=== PATIENT | female | born 1940 | race Caucasian/White ===

== ENCOUNTER 2016-10-28 22:17 | Inpatient (IN) | payer MEDICARE, OTHER ==
[2016-10-28] MEDS ORDERED: ZYLOPRIM100 M1 PO (22:33)
[2016-10-28] MEDS ORDERED: COREG25 M1 PO (22:34)
[2016-10-28] MEDS ORDERED: NEURONTIN100 M1 PO (22:35)
[2016-10-28] MEDS ORDERED: FELODIPINE ER5 M2 PO (22:35)
[2016-10-28] MEDS ORDERED: SYNTHROID175 MC1 PO (22:36)
[2016-10-28] MEDS ORDERED: CYTOMEL5 MC1 PO (22:36)
[2016-10-28] MEDS ORDERED: PRINIVIL5 M1 PO ×2 (22:37→22:38)
[2016-10-28] MEDS ORDERED: DULOXETINE HCL60 M1 PO (22:40)
[2016-10-28] MEDS ORDERED: MIRAPEX0.25 M1 PO (22:40)
[2016-10-28] MEDS ORDERED: NYSTATIN15 G2 TOP (22:41)
[2016-10-28] MEDS ORDERED: DELTASONE20 MG PO (22:42)
[2016-10-28] MEDS ORDERED: POTASSIUM CHLO20 ME3 PO (22:42)
[2016-10-28] MEDS ORDERED: MIRALAX17 G2 PO (22:42)
[2016-10-28] MEDS ORDERED: ALDACTONE50 M1 PO (22:43)
[2016-10-28] MEDS ORDERED: ZOCOR80 M1 PO (22:43)
[2016-10-28] MEDS ORDERED: EFFEXOR XR75 M1 PO (22:44)
[2016-10-28] MEDS ORDERED: TOPAMAX200 M1 PO (22:44)
[2016-10-28] MEDS ORDERED: WARFARIN SODIUM5 M2 PO (22:44)
[2016-10-28] MEDS ORDERED: LANTUS100 UNITS/ SC (22:45)
[2016-10-28] MEDS ORDERED: NOVOLOG100 UNITS/ SC ×2 (22:47→22:49)
[2016-10-29 02:18] LABS: INR 3.1 INR (0.9-1.1); PROTHROMBIN TIME 36.8 SECONDS (9.0-13.6)
[2016-10-29 06:36] LABS: BASO % 0.9 % (0-2); BASO ABSOLUTE COUNT 0.1 tho/cmm (0.0-0.2); EOS % 2.2 % (0-7); EOSINOPHIL ABSOLUTE COUNT 0.2 tho/cmm (0.0-0.7); HCT-HEMATOCRIT 42.6 % (34.0-49.0); HGB-HEMOGLOBIN 14.4 gm/dl (12.0-15.5); IMMATURE GRANULOCYTES ABSOLUTE 0.03 tho/cmm (0-0.03); IMMATURE GRANULOCYTES PERCENT 0.3 % (0-0.3); LYMPH % 19.8 % (20-45); LYMPH ABSOLUTE COUNT 2.1 tho/cmm (0.8-4.5); MCH (MEAN CORPUSCULAR HGB) 30.1 pg (28.0-32.0); MCHC MEAN CORPUSCULAR HGB CONC 33.8 % (32.0-36.0); MCV (MEAN CELL VOLUME) 88.9 fl (82.0-96.0); MONO % 9.9 % (0-12); MONOCYTE ABSOLUTE COUNT 1.1 tho/cmm (0.0-1.2); NEUTROPHIL ABSOLUTE COUNT 7.1 tho/cmm (1.6-8.0); NEUTROPHIL-AUTOMATED 7.1 tho/cmm (1.6-8.0); NEUTROPHILS % 66.9 % (40-80); PLATELET COUNT 181 tho/cmm (150-450); RED BLOOD COUNT 4.79 mil/cmm (4.00-5.20); RED CELL DISTRIBUTION WIDTH 14.8 % (12.4-16.4); WHITE BLOOD COUNT 10.6 tho/cmm (4.0-10.0)
[2016-10-29 06:43] LABS: INR 2.9 INR (0.9-1.1); PROTHROMBIN TIME 34.3 SECONDS (9.0-13.6)
[2016-10-29 06:54] LABS: ANION GAP 12 mmol/L (0-20); BLOOD UREA NITROGEN 59 mg/dl (6-24); CALCIUM 9.3 mg/dl (8.5-10.5); CARBON DIOXIDE-VENOUS 25 mmol/L (22-32); CHLORIDE 102 mmol/l (96-110); CHOLESTEROL 153 mg/dl (120-200); CREATININE 2.15 mg/dl (0.50-1.10); GLUCOSE 254 mg/dL (70-110); HDL CHOLESTEROL 47 mg/dl (40-60); LDL CHOLESTEROL 79 mg/dl (0-99); POTASSIUM 3.9 mmol/L (3.7-5.1); SODIUM 135 mmol/L (135-145); TRIGLYCERIDES 139 mg/dl (<149); VLDL 28 mg/dl (0-30); eGFR VALUE FOR BLACK 25 mL/Min
[2016-10-29 11:50] LABS: TSH-THYROID STIMULATING HORM. 6.44 uIU/ml (0.40-3.80)
[2016-10-30 05:24] LABS: INR 2.2 INR (0.9-1.1)
[2016-10-30 05:32] LABS: PROTHROMBIN TIME 25.6 SECONDS (9.0-13.6)
[2016-10-31 06:50] LABS: INR 3.4 INR (0.9-1.1); PROTHROMBIN TIME 40.7 SECONDS (9.0-13.6)
[2016-11-01 07:39] LABS: INR 4.6 INR (0.9-1.1); PROTHROMBIN TIME 55.8 SECONDS (9.0-13.6)
[2016-11-02 04:46] LABS: INR 4.2 INR (0.9-1.1); PROTHROMBIN TIME 50.8 SECONDS (9.0-13.6)
[2016-11-03 07:25] LABS: BASO % 0.5 % (0-2); BASO ABSOLUTE COUNT 0.1 tho/cmm (0.0-0.2); EOS % 2.3 % (0-7); EOSINOPHIL ABSOLUTE COUNT 0.3 tho/cmm (0.0-0.7); HCT-HEMATOCRIT 42.2 % (34.0-49.0); IMMATURE GRANULOCYTES ABSOLUTE 0.04 tho/cmm (0-0.03); IMMATURE GRANULOCYTES PERCENT 0.4 % (0-0.3); LYMPH % 18.7 % (20-45); LYMPH ABSOLUTE COUNT 2.1 tho/cmm (0.8-4.5); MCH (MEAN CORPUSCULAR HGB) 29.6 pg (28.0-32.0); MCHC MEAN CORPUSCULAR HGB CONC 33.2 % (32.0-36.0); MCV (MEAN CELL VOLUME) 89.2 fl (82.0-96.0); MEAN PLATELET VOLUME 12.1 cmc (9.4-12.4); MONO % 8.1 % (0-12); MONOCYTE ABSOLUTE COUNT 0.9 tho/cmm (0.0-1.2); NEUTROPHIL ABSOLUTE COUNT 7.7 tho/cmm (1.6-8.0); NEUTROPHIL-AUTOMATED 7.7 tho/cmm (1.6-8.0); PLATELET COUNT 156 tho/cmm (150-450); RED BLOOD COUNT 4.73 mil/cmm (4.00-5.20); RED CELL DISTRIBUTION WIDTH 14.7 % (12.4-16.4); WHITE BLOOD COUNT 11.1 tho/cmm (4.0-10.0)
[2016-11-03 07:41] LABS: ANION GAP 15 mmol/L (0-20); BLOOD UREA NITROGEN 67 mg/dl (6-24); CALCIUM 8.9 mg/dl (8.5-10.5); CARBON DIOXIDE-VENOUS 20 mmol/L (22-32); CHLORIDE 107 mmol/l (96-110); CREATININE 2.35 mg/dl (0.50-1.10); GLUCOSE 104 mg/dL (70-110); POTASSIUM 4.3 mmol/L (3.7-5.1); SODIUM 138 mmol/L (135-145); eGFR VALUE FOR BLACK 23 mL/Min
[2016-11-03 08:09] LABS: INR 2.4 INR (0.9-1.1); PROTHROMBIN TIME 28.5 SECONDS (9.0-13.6)
[2016-11-04 06:20] LABS: INR 1.7 INR (0.9-1.1); PROTHROMBIN TIME 20.5 SECONDS (9.0-13.6)
[2016-11-05 05:36] LABS: PROTHROMBIN TIME 24.3 SECONDS (9.0-13.6)
[2016-11-06 05:40] LABS: INR 2.6 INR (0.9-1.1)
[2016-11-06 05:42] LABS: PROTHROMBIN TIME 31.2 SECONDS (9.0-13.6)
[2016-11-06 06:09] LABS: ANION GAP 16 mmol/L (0-20); BLOOD UREA NITROGEN 71 mg/dl (6-24); CALCIUM 9.2 mg/dl (8.5-10.5); CARBON DIOXIDE-VENOUS 20 mmol/L (22-32); CHLORIDE 106 mmol/l (96-110); CREATININE 2.48 mg/dl (0.50-1.10); GLUCOSE 161 mg/dL (70-110); POTASSIUM 4.5 mmol/L (3.7-5.1); SODIUM 137 mmol/L (135-145); eGFR VALUE FOR BLACK 21 mL/Min
[2016-11-07 05:23] LABS: INR 2.6 INR (0.9-1.1); PROTHROMBIN TIME 30.5 SECONDS (9.0-13.6)
[2016-11-07] MEDS ORDERED: ASPIRIN EC81 MG PO (09:56)
[2016-11-08 04:42] LABS: INR 2.8 INR (0.9-1.1); PROTHROMBIN TIME 33.5 SECONDS (9.0-13.6)
== END 2016-11-08 09:15 | DRG 65 ==
LOC: 5EB 22:17
PROVIDERS: Hospitalist; Physician Assistant; Psychiatry & Neurology Neurology; Registered Nurse; ADMIT Hospitalist
PROC: 05HC33Z Insertion of Infusion Device into Left Basilic Vein, Percutaneous Approach (ICD-10-PCS; principal; 2016-10-29)
DX: I63.9 Cerebral infarction, unspecified (principal); G81.94 Hemiplegia, unspecified affecting left nondominant side; E11.22 Type 2 diabetes mellitus with diabetic chronic kidney disease; G20 Parkinson's disease; E11.65 Type 2 diabetes mellitus with hyperglycemia; I48.0 Paroxysmal atrial fibrillation; E11.40 Type 2 diabetes mellitus with diabetic neuropathy, unspecified; E11.51 Type 2 diabetes mellitus with diabetic peripheral angiopathy without gangrene; G25.81 Restless legs syndrome; F02.80 Dementia in other diseases classified elsewhere, unspecified severity, without behavioral disturbance, psychotic disturbance, mood disturbance, and anxiety; N18.3 Chronic kidney disease, stage 3 (moderate); Z79.4 Long term (current) use of insulin; E66.01 Morbid (severe) obesity due to excess calories; Z68.33 Body mass index [BMI] 33.0-33.9, adult; Z79.01 Long term (current) use of anticoagulants; Z91.81 History of falling; Z95.0 Presence of cardiac pacemaker; E03.9 Hypothyroidism, unspecified; F60.3 Borderline personality disorder; E78.5 Hyperlipidemia, unspecified; M19.90 Unspecified osteoarthritis, unspecified site; M79.7 Fibromyalgia; I50.9 Heart failure, unspecified; F41.9 Anxiety disorder, unspecified; F44.9 Dissociative and conversion disorder, unspecified; Z87.891 Personal history of nicotine dependence; Z88.2 Allergy status to sulfonamides; R27.0 Ataxia, unspecified
CPT/HCPCS: C1751; G8996-GN-CI; G8997-GN-CI; G8998-GN-CH; G9168-GN-CK; G9169-GN-CK; G9170-GN-CK; J1815; J7512